=== PATIENT | male | born 1985 | race Caucasian/White ===

== ENCOUNTER 2021-10-20 23:17 | Emergency (ER) | payer MEDICAID ==
[~2021-10-20] VITALS: Ht 195.6 cm; Wt 186.0 kg
[2021-10-20 23:20] VITALS: BP_SYST 181
--- NOTE | 2021-10-20 23:20 | NUR ---
Patient triaged and placed in waiting room. VSS and patient appears in no acute distress at this time. Accompanied by FAM MEMBER, awaiting available bed, and MD notified of need for MSE.
--- NOTE | 2021-10-20 23:35 | NUR ---
ER examining patient in the tent.
[2021-10-20] MEDS ORDERED: DECADRON 4 MG TABLET PO ONE (23:45)
[2021-10-20] MEDS ORDERED: IVERMECTIN 3 MG TABLET PO ONE (23:45)
[2021-10-20] MEDS ORDERED: DEC4 PO (23:55)
[2021-10-20] MEDS ORDERED: ALBMDI INH (23:55)
[2021-10-20] MEDS ORDERED: IVER3TAB PO (23:55)
[2021-10-20] MEDS ORDERED: ZINC50TA69 PO (23:55)
[2021-10-21] MEDS ORDERED: CHOLECALCIFEROL (VITAMIN D3) 5,000 UNIT TABLET PO ONE
--- NOTE | 2021-10-21 00:10 | NUR ---
Dr Caro made aware pt blood pressure elevated.
--- NOTE | 2021-10-21 00:13 | NUR ---
Patient given written and verbal discharge instructions by Dr Caro and verbalizes understanding. ER MD discussed with patient the results and treatment provided. Patient in stable condition. ID arm band removed. Rx of Ventolin,Decadron,Ivermectin given. Patient educated on pain management and to follow up with PMD. Pain Scale 5/10. Opportunity for questions provided and answered. Medication side effect fact sheet provided.
[2021-10-21 00:15] VITALS: BP_SYST 180
== END 2021-10-21 00:15 | disposition home or self-care (01) ==
LOC: SED 23:17
DX: U07.1 COVID-19 (principal); R05.9 Cough, unspecified; J45.909 Unspecified asthma, uncomplicated
CPT/HCPCS: 99283; J8540